=== PATIENT | female | born 1970 | race Caucasian/White ===

== ENCOUNTER 2024-02-07 13:14 | Emergency (ER) | payer BC, SELFPAY ==
[2024-02-07 13:23] VITALS: BP 142/68
[2024-02-07 13:42] LABS: % Basophils 0.6 % (0-2); % Eosinophils 1.6 % (0-6); % Immature Granulocytes 0.2 % (0-0.5); % Lymphocytes 42.2 % (20.5-51.1); % Monocytes 6.9 % (1.7-9.3); % Neutrophils 48.5 % (42.2-75.2); Absolute Eosinophils 0.1 10^3/uL (0-0.7); Absolute Lymphocytes 2.2 10^3/uL (1.2-3.4); Absolute Monocytes 0.4 10^3/uL (0.1-0.6); Absolute Neutrophils 2.5 10^3/uL (1.4-6.5); Hematocrit 41.1 % (37.0-47.0); Hemoglobin 14.3 g/dL (12.0-16.0); Mean Corp Hgb Conc. 34.8 g/dL (33.0-37.0); Mean Corpuscular Hgb 30.5 pg (27.0-31.0); Mean Corpuscular Volume 87.6 fL (81.0-99.0); Mean Platelet Volume 9.4 fL (7.4-10.4); Nucleated Red Blood Cells % 0 %; Platelet Count 267 10^3/uL (130-400); Red Blood Cell Count 4.69 10^6/uL (4.20-5.40); White Blood Cell Count 5.1 10^3/uL (4.8-10.8)
[2024-02-07 13:44] LABS: Urine Albumin Negative (Neg - Trace); Urine Bilirubin Negative (Negative); Urine Character Clear (Clear); Urine Color Straw; Urine Glucose Negative (Negative); Urine Ketone Negative (Negative); Urine Leukocyte Negative (Negative); Urine Nitrite Negative (Negative); Urine Occult Blood Negative (Negative); Urine Specific Gravity 1.005 (<1.030); Urine Urobilinogen Negative (Neg - 1+)
[2024-02-07 14:03] LABS: HCG, Serum Qualitative Screen Negative
[2024-02-07 14:07] LABS: ALT (SGPT) 25 U/L (0-35); AST (SGOT) 29 U/L (14-36); Albumin 4.9 g/dl (3.5-5.0); Alkaline Phosphatase 126 U/L (38-126); Blood Urea Nitrogen 15 mg/dl (7-17); Calcium 9.9 mg/dl (8.4-10.2); Carbon Dioxide 28 mmol/L (22-30); Chloride 104 mmol/L (98-107); Glucose 98 mg/dl (70-99); Lipase 325 U/L (23-300); Sodium 142 mmol/L (135-145); Total Bilirubin 0.7 mg/dl (0.2-1.3); Total Protein 7.9 g/dl (6.3-8.2); eGFR > 60.00
[2024-02-07] MEDS: NSS 1000 IV (16:02)
[2024-02-07] MEDS: TORADOL 30 MG IV (16:02)
[2024-02-07] MEDS: OMNIPAQUE 50 ML PO (16:02)
[2024-02-07 16:06] LABS: Erythrocyte Sed Rate 17 mm/hour (0-20)
[2024-02-07 16:10] VITALS: BP 124/87
--- NOTE | 2024-02-07 16:15 | ED.GENMED ---
History of Present Illness
General
Chief Complaint: Abdominal Pain
Source: patient
Exam Limitations: none
Time Seen by Provider: 02/07/24 15:32
Nursing documentation reviewed up to this point in time: agreed with
Travel History
Have you had any contact with someone who has COVID-19?: No
Do you have any symptoms of coronavirus? Fever > 100 degrees, chills, cough, shortness of breath, sore throat, loss of taste or smell, muscle aches, or headache?: No
History of Present Illness
History of Present Illness:
53-year-old female status post appendectomy status post cholecystectomy status post bowel resection for Crohn's at age 21 said no recurrence she gets frequent colonoscopies followed by Dr. San
Presents with right-sided abdominal pain and right back pain for about a month with muscular saw a therapist, had some blood work her LFTs were elevated schedule he is to repeat blood work this week today she had right lower abdominal tenderness
crampy pressure-like, with no nausea vomiting fever no chills no bloody stools no diarrhea no fevers
Past History
Past History
ED Past Medical History: Other (Crohn's disease)
ED Past Surgical History: Appendectomy, Bowel resection, Cholecystectomy, and Orthopedic
Social History
Tobacco: Non-smoker
Alcohol: None
Drug: None
Living: with family
Employment: Employed
Family History
Family History: CAD
Review of Systems
Review of Systems
All Other Systems: ROS reviewed and negative except as documented in HPI and ROS
Constitutional: Denies fever, fatigue or chills
EENT: Reports no symptoms
Respiratory: Reports no symptoms
Cardiac: Reports no symptoms
ABD/GI: Reports abdominal pain; Denies vomiting or diarrhea
Phy Exam
Physical Exam
Physical Exam:
Physical Exam
General: no apparent distress, not acutely ill
Neck: No jaundice
Heart: s1/s2 regular rate and rhythm, no murmur. equal radial pulses.
Lungs: no acute respiratory distress. clear bilaterally
Abdomen: Soft no CVA tenderness minimal lower abdominal tenderness
Neuro: alert and oriented. no focal neurological deficits
Skin: no rash
Psychiatric: well kept. interactive and cooperative
Extremities: no edema.
Course
Orders/Labs/Results
Orders:
Orders
02/07/24 13:26
Test Result ONCE
02/07/24 13:29
C-Reactive Protein Urgent
Comment: ESR & CRP ADDED ON BY FLOOR 3:45PM 02-07-24
Complete Blood Count/With Diff Urgent
Comprehensive Metabolic Panel Urgent
Erythrocyte Sed Rate Urgent
HCG, Serum Qualitative Screen Urgent
Lipase Urgent
Urinalysis Reflex To Culture Urgent
Date Specimen was Collected: 02/07/24
Time Specimen was Collected: :
02/07/24 15:46
Add On- LAB Urgent
Tests Added?: esr/crp
02/07/24 15:47
CT Abd/pel W Iv And Oral Contr Urgent
Comment:
Reason For Exam: pain chrons
0.9% Sodium Chloride 1000 ml [Nss] 1,000 ml IV BOLUS
Iohexol [Omnipaque] See Protocol PO NOW STA
Ketorolac [Toradol] 30 mg IV NOW STA
Abnormal Lab Results
02/07/24
13:29
Lipase 325 H U/L
(23-300)
02/07/24 13:29
02/07/24 13:29
Vital Signs
Initial and Last Documented VS:
Initial Vital Signs
Temp Pulse Resp BP Pulse Ox
98.7 F 60 18 142/68 100
02/07/24 13:23 02/07/24 13:23 02/07/24 13:23 02/07/24 13:23 02/07/24 13:23
Last Documented Vital Signs
Temp Pulse Resp BP Pulse Ox
98.7 F 60 18 140/88 100
02/07/24 13:23 02/07/24 13:23 02/07/24 13:23 02/07/24 18:31 02/07/24 18:45
MDM/Problems Addressed
Differential Diagnosis Includes:
Crohn's flare nonspecific abdominal pain partial SBO renal colic
MDM/Problems Addressed:
Abdominal pain
Chronic conditions affecting care:
Crohn's,
Chronic conditions affecting care: Previous abdomnial surgery
Acute Exacerbation and/or Progression of Chronic Illness: Previous abdomnial surgery
*Radiology
Radiology exam reviewed: preliminary read by ED provider
*Pulse Oximetry
Patient hypoxic: no
*Critical Care Note
Total Time (30-74mins, 75-104mins- exclusive of procedures): Not Applicable
Update Note
Update Note:
Update labs noted will add inflammatory markers check CT as she has had prior abdominal surgery and has Crohn's
7:[address] report noted
Patient updated
ED Attending Note
-
Portions of this chart may have been created with voice recognition software.� Occasional wrong word or��sound alike� substitutions may have occurred due to the inherent limitations of voice recognition software.
Discharge Plan
Departure
Patient Disposition: Home (Routine Discharge)
Date of Disposition: 02/07/24
Time of Disposition: 19:21
Patient with high blood pressure during this ER visit?: No
Condition: Good
Discharge Problem:
Abdominal pain
Instructions: Abdominal Pain
Prescriptions:
No Action
cetirizine 10 MG tablet
10 mg PO DAILY
multivitamin with folic acid [Tab-A-Clayton] 1 TABLET tablet
1 tab PO DAILY
Referrals:
Isela Graham DO [Family Provider] -
Interventions
Interventions:
*Risk Screen - Suicide Last Done: 02/07/24 13:25
*General Assessment Last Done: 02/07/24 13:25
*Neglect/Abuse Screening Last Done: 02/07/24 13:25
GA-Gsxsxb-Gvplkbqerz Assessment Last Done: 02/07/24 16:13
Discharge Date and Time
Print Language: LIBERIAN
[2024-02-07 16:35] LABS: C-Reactive Protein < 5.00 mg/L (0.0-10.00)
[2024-02-07 17:00] VITALS: BP 117/77
[2024-02-07 18:31] VITALS: BP 140/88
== END 2024-02-07 19:42 | disposition home or self-care (01) ==
LOC: EMR 13:14
PROVIDERS: Emergency Medicine; EMERGENCY PHYSICIAN Emergency Medicine; FAMILY PHYSICIAN Family Medicine
DX: R10.9 Unspecified abdominal pain (principal)
CPT/HCPCS: 99285; 96374; 96361; 74177; 80053; 81003; 83690; 84703; 85025; 85652; 86140; Q9967

== ENCOUNTER → 2024-05-30 07:53 | Outpatient (REF) | payer BC, SELFPAY | LOC: WDC 07:53 | PROVIDERS: ATTENDING PHYSICIAN Obstetrics & Gynecology; FAMILY PHYSICIAN Family Medicine | DX: Z12.31 Encounter for screening mammogram for malignant neoplasm of breast (principal) | CPT/HCPCS: 77063; 77067 ==

== ENCOUNTER → 2024-09-12 08:16 | Outpatient (REF) | payer BC, SELFPAY | LOC: RAD 08:16 | PROVIDERS: ATTENDING PHYSICIAN Family Medicine; REFERRING PHYSICIAN Internal Medicine | DX: R74.8 Abnormal levels of other serum enzymes (principal) | CPT/HCPCS: 78306; A9503 ==

== ENCOUNTER → 2025-05-31 07:12 | Outpatient (REF) | payer BC, SELFPAY | LOC: WDC 07:12 | PROVIDERS: ATTENDING PHYSICIAN Obstetrics & Gynecology; FAMILY PHYSICIAN Family Medicine | DX: Z12.31 Encounter for screening mammogram for malignant neoplasm of breast (principal) | CPT/HCPCS: 77063; 77067 ==